=== PATIENT | male | born 1955 | race Caucasian/White ===

== ENCOUNTER 2016-08-31 15:57 | Emergency (ER) | payer SELFPAY ==
[2016-08-31 17:42] VITALS: BP 157/90
--- NOTE | 2016-08-31 18:55 | UC ---
Skin Complaint HPI - HPI Summary HPI Summary: Pt presents with c/o worsening rash to right anterior forearm. Pt reports that he has known poison MIGUEL exposure and has been using OTC medications to manage the symptoms. Pt reports that yesterday his right forearm Looked larger than the left" Pt reports pruritis, tenderness, erythema, blistering, and mild swelling to right anterior forearm - History of Current Complaint Time Seen by Provider: 08/31/16 17:48 Stated Complaint: RASH Hx Obtained From: Patient Onset/Duration: Gradual Onset, Lasting Days - 10 days Skin Exposure Onset/Duration: Days Ago - 10 days ago Timing: Constant Onset Severity: Mild Current Severity: Moderate Pain Intensity: 7 Pain Scale Used: 0-10 Numeric Location: Discrete - right anterior forearm Character: Swelling, Pruritus, Redness Aggravating: Touch Alleviating: Unknown Associated Signs & Symptoms: Positive: Drainage, Tenderness Related History: Other: - poison miguel - Allergy/Home Medications Allergies/Adverse Reactions: Allergies Allergy/AdvReac Type Severity Reaction Status Date / Time No Known Allergies Allergy Verified 08/31/16 17:37 Review of Systems Constitutional: Negative Skin: Rash, Other - erythema, pruritis Eyes: Negative ENT: Negative Respiratory: Negative Cardiovascular: Negative Gastrointestinal: Negative Genitourinary: Negative Motor: Negative Neurovascular: Negative Musculoskeletal: Edema - right forearm Neurological: Negative Psychological: Negative All Other Systems Reviewed And Are Negative: Yes PMH/Surg Hx/FS Hx/Imm Hx Previously Healthy: Yes Cardiovascular History Of: Denies: Hypertension, Myocardial Infarction Respiratory History Of: Denies: Asthma, Pneumonia - Surgical History Surgical History: None Surgery Procedure, Year, and Place: Appendectomy 20 years ago - Family History Known Family History: Positive: Other - positive [facility] for rash - Social History Occupation: Employed Full-time Alcohol Use: None Substance Use Type: None Smoking Status (MU): Never Smoked Tobacco Physical Exam Triage Information Reviewed: Yes Appearance: Well-Appearing Vital Signs: Initial Vital Signs Temp 98.1 F 08/31/16 17:37 Pulse 78 08/31/16 17:37 Resp 16 08/31/16 17:37 BP 157/90 08/31/16 17:37 Pulse Ox 98 08/31/16 17:37 Eye Exam: Normal Neck exam: Normal Respiratory Exam: Normal Cardiovascular Exam: Normal Musculoskeletal: Positive: Edema @ - right forearm Neurological Exam: Normal Psychological Exam: Normal Skin: Positive: rashes - right forearm, erythematous from wrist to just above elbow, dried, yellow crusting, warm to touch, mild edema. Course/Dx - Differential Diagnoses - Skin Complaint Differential Diagnoses: Cellulitis, Poison Miguel - Diagnoses Provider Diagnoses: cellulitis. poison miguel Discharge - Discharge Plan Condition: Stable Disposition: HOME Prescriptions: Cephalexin CAP* [Keflex 500 CAP*] 500 mg PO Q12H #10 cap Loratadine 10 mg PO DAILY #14 cap methylPREDNISolone TAB* [Medrol TAB*] 4 - 8 mg PO .SEE OCTAVIA #1 octavia Patient Education Materials: Cellulitis (ED), Poison Miguel (ED) Referrals: [facility] [Outside] Grzegorz Babcock MD [Medical Doctor] - As Soon As Possible Additional Instructions: Please follow up with your PCP. If you do not have a PCP we have provided a referral number to the [facility] provider group.
== END 2016-08-31 18:35 | disposition home or self-care (01) ==
LOC: UCEAST 15:57
DX: L03.113 Cellulitis of right upper limb (principal); L23.7 Allergic contact dermatitis due to plants, except food
CPT/HCPCS: 99212; G0463